=== PATIENT | female | born 1950 | race Caucasian/White ===

== ENCOUNTER 2019-09-10 08:20 | Emergency (ER) | payer MEDICARE, SELFPAY ==
[2019-09-10 08:23] VITALS: BP 136/63; PULSE 96; RESP 18; TEMP 36.2; O2SAT 98
--- NOTE | 2019-09-10 08:41 | ED.WOUNDLAC ---
HPI - Wound/Laceration General Chief Complaint: Wound/Laceration Stated Complaint: fall Time Seen by Provider: 09/10/19 08:25 Source: patient Mode of arrival: ambulatory Limitations: no limitations History of Present Illness HPI narrative: Pt is a 69 y/o female who presents to the ED with c/o a laceration to her chin that happened this morning. Pt states that she has been fighting and URI and this morning she was using the toilet, and stood up, felt lightheaded and hit her ring on her face causing a laceration. Pt denies syncope or loss of consciousness. She states she did not fall. Pt is not on any blood thinners and denies a PMHx. She reports cough, congestion, myalgia, and chills, but denies QUINONES, fever, ABD pain, vomiting, SOB, or visual changes. She notes that she has been eating and drinking normally. Pt states that her tetanus is UTD. Location: face Place: home Patient tetanus UTD: Yes Context: accidental Associated symptoms: other ( cough, congestion, myalgia, and chills) Related Data Allergies Allergy/AdvReac Type Severity Reaction Status Date / Time cefadroxil Allergy Hives Verified 09/10/19 08:58 levofloxacin Allergy Hives Verified 09/10/19 08:28 tetracycline Allergy Hives Verified 09/10/19 08:28 Review of Systems Review of Systems: Narrative: CONSTITUTIONAL: Denies fever or chills. EYES: Denies visual changes. ENT: Reports congestion RESPIRATORY: Reports dry cough. Denies dyspnea. GASTROINTESTINAL: Denies abdominal pain or vomiting SKIN: Reports laceration to chin. MUSCULOSKELETAL: Reports myalgia. NEUROLOGIC: Denies LOC or QUINONES. Denies numbness or weakness. PMFSH Past Medical History Medical History (Updated 09/10/19 @ 09:18 by Sarah Hurtado MD) Anxiety Depression MVP (mitral valve prolapse) Osteoporosis Surgical History Surgical History (Updated 09/10/19 @ 08:55 by Jeny Stoner) H/O dilation and curettage Social History Social History (Updated 09/10/19 @ 08:55 by Jeny Stoner) Smoking status: Never smoker Exam Narrative: Exam Narrative: GENERAL: Well-appearing, well-nourished, and in no acute distress. HEAD: Normocephalic, atraumatic. EYES: PERRLA and EOMI. ENT: Nares clear, no rhinorrhea or epistaxis. Mucous membranes moist. NECK: Supple. CHEST: Clear to auscultation. No respiratory distress. HEART: Regular rate and rhythm. No murmur heard. Normal peripheral pulses. ABDOMEN: Soft, nontender, nondistended, normal active bowel sounds. EXTREMITIES: Normal range of motion. No edema. SKIN: Warm, dry, no rash. 2cm full thickness laceration to lateral aspect of the chin NEURO: No focal deficits. Alert and oriented X3. EOMs intact without nystagmus. No facial droop/asymmetry noted bilaterally. Grimace intact. Intact sensation in face. Hearing intact bilaterally. Shoulder shrug intact. Strength 5/5 bilateral upper extremities. Strength 5/5 bilateral lower extremities. Reflexes 2+ patellar. Ambulatory with a narrow based steady gait. No ataxia. Course Vital Signs Vital signs: Vital Signs Temperature 36.2 C L 09/10/19 08:23 Pulse Rate 96 09/10/19 08:23 Respiratory Rate 18 09/10/19 08:23 Blood Pressure 136/63 09/10/19 08:23 Pulse Oximetry 98 09/10/19 08:23 Temperature 36.2 C L 09/10/19 08:23 Pulse Rate 96 09/10/19 08:23 Respiratory Rate 18 09/10/19 08:23 Blood Pressure 136/63 09/10/19 08:23 Pulse Oximetry 98 09/10/19 08:23 MDM - Wound/Laceration MDM Narrative Medical decision making narrative: The patient presented for evaluation of chin laceration. Patient denies syncope or loss of consciousness. She has a 2 cm full-thickness laceration to her chin. She states that she believes that her ring cut her face. No palpitations, no chest pain, no shortness of breath, no prodromal type symptoms. She denies vision changes, nausea, vomiting, numbness. She is not anticoagulated. She is ambulatory without recurrent symptoms. Neurological exam is nor
[2019-09-10] MEDS: ONDANSETRON HCL ODT 4 MG TABLET PO (10:15)
--- NOTE | 2019-09-10 10:29 | PC.NURSE ---
Pt ambulated per Dr request, no symptoms noted per pt. Normal gait
[2019-09-10 10:41] VITALS: BP 111/64; PULSE 82; RESP 20; TEMP 36.8; O2SAT 97
== END 2019-09-10 10:41 | disposition home or self-care (01) ==
PROVIDERS: Emergency Provider Emergency Medicine
DX: S01.81XA Laceration without foreign body of other part of head, initial encounter (principal); M81.0 Age-related osteoporosis without current pathological fracture; I34.1 Nonrheumatic mitral (valve) prolapse; W26.8XXA Contact with other sharp object(s), not elsewhere classified, initial encounter
CPT/HCPCS: 12011; 99283; A9270

== ENCOUNTER 2020-03-03 09:36 | Outpatient (CLI) | payer MEDICARE, SELFPAY ==
--- NOTE | ~2020-03-03 | US_ITS ---
EXAMINATION: US right upper quadrant EXAM DATE: 03/03/2020 10:35 INDICATION: Liver lesion right liver lobe. TECHNIQUE: Multiple grayscale and Doppler images of the abdomen right upper quadrant were obtained (b y a technologist who performed the scan) and subsequently reviewed. Comparison is made to prior exami nation from 05/24/2019. FINDINGS: The pancreatic head and body are normal in appearance. The pancreatic tail is not visualized. The l iver has normal echogenicity and contour. There are 2 small peripheral right liver lobe slightly hyp erechoic regions identified measuring up to 1.0 cm today. Previously seen region is unchanged. Anothe r region close to it was not specifically identified on prior study, uncertain whether or not it was present and just not visualized. There is no evidence of intrahepatic biliary duct dilation. Portal venous flow was seen in the hepatopedal, normal direction and has normal Doppler waveform. No right- sided hydronephrosis. Common bile duct measures 2 mm, which is normal. The gallbladder wall is normal in thickness, with ex pected amount of distention. No sonographic evidence of pericholecystic fluid. There is no cholelit hiases. Technologist performing exam reports patient did not demonstrate sonographic Degroot's sign. Please note that this sign is less reliable in patients who have received pain medication. IMPRESSION: 2 nonspecific small right liver lobe hyperechoic regions, the one previously identified i s unchanged in size. These are most likely benign but are nonspecific by ultrasound. If patient has k nown primary malignancy, consider MR which could add specificity. If not, optional 6 or 12 month foll ow-up ultrasound. Reviewed, dictated and finalized at location A. IMPRESSION: 2 nonspecific small right liver lobe hyperechoic regions, the one p reviously identified is unchanged in size. These are most likely benign but are nonspecific by ultrasound. If patient has known primary malignancy, consider M R which could add specificity. If not, optional 6 or 12 month follow-up ultraso und.
== END 2020-03-03 09:37 | disposition home or self-care (01) ==
LOC: ANHIMG 09:39
DX: K76.9 Liver disease, unspecified (principal)
CPT/HCPCS: 76705

== ENCOUNTER → 2020-05-04 11:04 | Outpatient (CLI) | payer MEDICARE, SELFPAY ==
--- NOTE | ~2020-05-04 | DEXA_ITS ---
Bone Density Report Name: Rosalind Granados Age: 69 Sex: Female Ethnicity: White Date of : 1950 Indication: postmenopausal; screening for osteoporosis; Referring Provider: PHYSICIAN NOT ON STAFF Study: Bone densitometry was performed. Exam Date: May 04, 2020 Accession number: [id number] Bone Density: Region BMD T-score Z-score Classification AP Spine (L1-L4) 1.131 0.8 2.7 Normal Femoral Neck (Left) 0.501 -3.1 -1.5 Osteoporosis Total Hip (Left) 0.673 -2.2 -0.8 Osteopenia Femoral Neck (Right) 0.513 -3.0 -1.4 Osteoporosis Total Hip (Right) 0.672 -2.2 -0.8 Osteopenia Total Hip Mean 0.673 -2.2 -0.8 Osteopenia World Health Organization criteria for BMD impression classify patients as: Normal (T-score at or above -1.0), Osteopenia (T-score between -1.0 and -2.5), or Osteoporosis (T-score at or below -2.5). 10-year Fracture Risk: FRAX not reported because: Some T-score for Spine Total or Hip Total or Femoral Neck at or below -2.5 Clinical Information Provided by Patient: Has used the following medications: Vitamin D, Calcium Patient maximum height was 63 Menopause Age: 59 Onset of menses at age 18 Number of children 2 Impression: The patient has osteoporosis, based on the Left Femoral Neck T-score. Discussion: INCREASED RISK OF FRACTURE. BONE DENSITY IS UNDESIRABLY LOW AT ONE OR MORE SKELETAL SITES, CONSISTENT WITH POSTMENOPAUSAL OSTEOPOROSIS. This patient's lowest T-score meets the World Health Organization's (WHO) criteria for osteoporosis at one or more sites (T-score -2.5 or below). In untreated patients, the risk of osteoporotic fracture increases approximately two-fold for each 1.0 SD decrease in T-score. Low bone density is not the only risk factor for fracture; also consider factors such as patient's age, frailty or poor health, risk of falling, risk of injury, previous osteoporotic fracture, family history of osteoporosis, cigarette smoking, low body weight, etc. Not everyone with low bone mineral density has osteoporosis; osteomalacia and other metabolic bone disorders should also be considered. Patients who have osteoporosis should be evaluated for specific diseases and conditions (secondary causes) that may cause or contribute to bone loss. The [place] [employer]ocrinologists (AACE) and National Osteoporosis Foundation (NOF) recommend pharmacologic intervention for all postmenopausal women whose T-score is in this range. The patient should follow a healthful lifestyle (good nutrition with adequate calcium and vitamin D, and appropriate weight-bearing exercise). Follow-Up: Consider a repeat BMD and Vertebral Fracture Assessment (VFA) exam in 2 years or sooner if medically necessary, to reassess this patient's status. Reported by: [facility] on 05/04/2020 11:34:00 AM.
== END ==
DX: M81.0 Age-related osteoporosis without current pathological fracture (principal); M85.89 Other specified disorders of bone density and structure, multiple sites
CPT/HCPCS: 77080

== ENCOUNTER → 2020-06-01 18:16 | Outpatient (CLI) | payer MEDICARE, SELFPAY ==
--- NOTE | ~2020-06-01 | MM_ITS ---
EXAMINATION: MM screening sree BI w misty HISTORY: Screening mammogram TECHNIQUE: Craniocaudal and mediolateral oblique 3-D tomosynthesis images were obtained and synthetic 2-D images were generated. CAD analysis was submitted and interpreted. COMPARISON: No prior mammogram is available for comparison at this institution. BREAST PARENCHYMAL COMPOSITION: There are scattered areas of fibroglandular density. FINDINGS: There is no evidence of suspicious mass, calcification, or architectural distortion to sugg est malignancy in either breast. There has been no suspicious interval change. IMPRESSION: 1. No mammographic evidence of malignancy. 2. Recommend routine screening mammography in one year. BI-RADS Category 1: Negative Reviewed, dictated and finalized at location A. TERIA HELPER
== END ==
DX: Z12.31 Encounter for screening mammogram for malignant neoplasm of breast (principal)
CPT/HCPCS: 77063; 77067

== ENCOUNTER 2021-02-08 23:27 | Emergency (ER) | payer MEDICARE, SELFPAY ==
--- NOTE | ~2021-02-08 | XR_ITS ---
EXAMINATION: XR chest 1V portable DATE: 02/09/2021 00:24 INDICATION: Dizziness TECHNIQUE: frontal view of the chest was obtained. COMPARISON: None FINDINGS: Minimal streaky lingular atelectasis at the left costophrenic angle. The lungs are otherwise clear wi th no other airspace opacities, pulmonary edema, pleural effusion or pneumothorax. The cardiomediasti nal silhouette is normal. Visualized bones and soft tissues are unremarkable. IMPRESSION: 1. Minimal lingular atelectasis. Reviewed, dictated and finalized at location A.
--- NOTE | ~2021-02-08 | CT_ITS ---
EXAMINATION: CT brain wo con DATE: 02/09/2021 01:54 INDICATION: Dizziness TECHNIQUE: Computed tomography (CT) of the head was performed without intravenous contrast. The mA wa s adjusted according to patient size. Iterative reconstruction technique was employed. Exam dose: 60 5.33 mGy-cm total exam DLP. COMPARISON: 10/25/2011 CT brain FINDINGS: Bilateral basal ganglia calcifications are noted. No intracranial mass lesion or hemorrhage or cerebrovascular accident is detected. No midline shift o r mass effect. Normal ventricular size. No subdural or epidural hematoma. Included paranasal sinuses and mastoid air cells are unremarkable. No fracture or bone destruction of the cranial vault. IMPRESSION: No acute intracranial abnormality or significant change since 10/25/2011 Reviewed, dictated and finalized at Location A. Reviewed, dictated and finalized at location D. IMPRESSION: No acute intracranial abnormality or significant change since 10/24
[2021-02-08 23:27] VITALS: BP 150/83; RESP 18; TEMP 36.6; O2SAT 100
--- NOTE | 2021-02-09 00:13 | ECG_ITS ---
Measurements Intervals [place] Rate: 76 P: 61 AK: 156 QRS: 44 QRSD: 77 T: 43 QT: 361 QTc: 408 Interpretive Statements SINUS RHYTHM NORMAL ECG Electronically Signed On 02-09-2021 8:55:41 CDT by Dominick Escobar D.O.
[2021-02-09 00:35] LABS: Basophils Absolute Auto 0.1 K/mm3 (0.0-0.1); Basophils Percent Auto 0.7 % (0.2-1.2); Eosinophils Absolute Auto 0.1 K/mm3 (0-0.3); Eosinophils Percent Auto 1.1 % (0-4.4); Hematocrit 44.8 % (37.0-47.0); Hemoglobin 14.6 g/dL (12.0-15.0); Immature Granulocyte Absolute 0.03 K/mm3 (0.00-0.031); Immature Granulocyte Percent A 0.3 % (0-0.5); Lymphocytes Percent Auto 14.2 % (18.3-44.2); Mean Corpuscular HGB Conc 32.6 g/dl (32-36); Mean Corpuscular Hemoglobin 28.7 pg (26-34); Mean Platelet Volume 10.7 fl (7.4-10.4); Monocytes Absolute Auto 0.6 K/mm3 (0.1-0.6); Monocytes Percent Auto 6.1 % (2.6-8.5); Neutrophils Absolute Auto 8.2 K/mm3 (1.3-6.7); Neutrophils Percent Auto 77.6 % (45.5-73.1); Platelet Count Result 247 k/mm3 (150-375); Red Blood Count 5.09 M/mm3 (4.2-5.4); Red Cell Distribution Width 14.2 % (11.5-14.5); White Blood Count 10.6 K/mm3 (4.5-10.0)
[2021-02-09 00:38] VITALS: BP 147/71; BP 151/71; PULSE 88; PULSE 90
[2021-02-09 00:40] VITALS: BP 156/80; PULSE 96
[2021-02-09 00:46] VITALS: BP 140/60; PULSE 81; RESP 12; O2SAT 96
[2021-02-09 00:46] LABS: Alanine Aminotransferase 17 U/L (4-35); Albumin Level 4.2 g/dL (3.5-5.1); Alkaline Phosphatase 91 U/L (38-126); Anion Gap 10 mmol/L (8-16); Aspartate Amino Transferase 24 U/L (14-36); Bilirubin,Total 0.3 mg/dL (0.2-1.3); Blood Urea Nitrogen 11 mg/dL (7-17); Calcium 9.8 mg/dL (8.4-10.2); Carbon Dioxide 21 mmol/L (22-30); Chloride 108 mmol/L (98-107); Estimated CRCL calculation 60 ml/min; Estimated Glomerular Filt Rate > 60; Glucose 118 mg/dL (65-110); Potassium 3.8 mmol/L (3.4-5.0); Sodium 139 mmol/L (137-145)
[2021-02-09 00:58] LABS: Troponin I < 0.012 ng/mL (0.000-0.034)
[2021-02-09] MEDS: SODIUM CHLORIDE 0.9% IV 1,000 ML 999 ML IV CONT (01:38)
[2021-02-09 01:56] VITALS: PULSE 70
--- NOTE | 2021-02-09 02:46 | ED.GENADULT ---
HPI - General Adult General Chief complaint: Weakness Stated complaint: weakness/dizzines Time Seen by Provider: 02/08/21 23:57 History of Present Illness HPI narrative: Patient is 70-year-old female presents the emergency department with chief complaint of dizziness. Patient reports this evening she started noticing that as she turned her head she started to feel as though she was spinning and felt dizzy the patient states she also felt nauseated and lightheaded when this happened. The patient reports that she has had no chest pain no shortness of breath denies focal neurological deficit. Patient reports that it is actually improved upon arrival to the emergency department and is only worsened whenever she turns her head particularly to the left. Related Data Allergies Allergy/AdvReac Type Severity Reaction Status Date / Time cefadroxil Allergy Hives Verified 09/10/19 08:58 levofloxacin Allergy Hives Verified 09/10/19 08:28 tetracycline Allergy Hives Verified 09/10/19 08:28 Review of Systems Review of Systems: A 10 system review of systems was completed on the patient and is negative except for what is stated in the HPI. Nursing and ancillary documentation was reviewed. [facility] Past Medical History Medical History Anxiety Depression MVP (mitral valve prolapse) Osteoporosis Surgical History Surgical History H/O dilation and curettage Social History Social History Smoking status: Never smoker Exam Narrative: GENERAL: Well-appearing, well-nourished, and in no acute distress. HEAD: Normocephalic, atraumatic. EYES: PERRLA and EOMI. ENT: Nares clear, no rhinorrhea or epistaxis. Mucous membranes moist. NECK: Supple. CHEST: Clear to auscultation. No respiratory distress. HEART: Regular rate and rhythm. No murmur heard. Normal peripheral pulses. ABDOMEN: Soft, nontender, nondistended, normal active bowel sounds. EXTREMITIES: Normal range of motion. No edema. SKIN: Warm, dry, no rash. NEURO: No focal deficits. Alert and oriented x3. PSYCH: Normal mood and affect. Course Vital Signs Vital signs: Vital Signs Temperature 36.6 C 02/08/21 23:27 Respiratory Rate 18 02/08/21 23:27 Blood Pressure 150/83 H 02/08/21 23:27 Pulse Oximetry 100 02/08/21 23:27 Temperature 36.6 C 02/08/21 23:27 Pulse Rate 70 02/09/21 01:56 Respiratory Rate 12 02/09/21 00:46 Blood Pressure 140/60 02/09/21 00:46 Pulse Oximetry 96 02/09/21 00:46 Medical Decision Making Vital Signs Vital Signs: Vital Signs Temperature 36.6 C 02/08/21 23:27 Respiratory Rate 18 02/08/21 23:27 Blood Pressure 150/83 H 02/08/21 23:27 Pulse Oximetry 100 02/08/21 23:27 Temperature 36.6 C 02/08/21 23:27 Pulse Rate 70 02/09/21 01:56 Respiratory Rate 12 02/09/21 00:46 Blood Pressure 140/60 02/09/21 00:46 Pulse Oximetry 96 02/09/21 00:46 Lab Data Result diagrams: 02/09/21 00:29 02/09/21 00:29 Labs: Lab Results 02/09/21 02/09/21 Range/Units 00:29 00:29 WBC 10.6 H (4.5-10.0) K/mm3 RBC 5.09 (4.2-5.4) M/mm3 Hgb 14.6 (12.0-15.0) g/dL Hct 44.8 (37.0-47.0) % MCV 88.0 (80-100) fl MCH 28.7 (26-34) pg MCHC 32.6 (32-36) g/dl RDW 14.2 (11.5-14.5) % Plt Count 247 (150-375) k/mm3 MPV 10.7 H (7.4-10.4) fl Immature Gran % (Auto) 0.3 (0-0.5) % Neut % (Auto) 77.6 H (45.5-73.1) % Lymph % (Auto) 14.2 L (18.3-44.2) % [place] % (Auto) 6.1 (2.6-8.5) % Eos % (Auto) 1.1 (0-4.4) % Baso % (Auto) 0.7 (0.2-1.2) % Lymph # (Auto) 1.50 (0.9-3.2) K/mm3 [place] # (Auto) 0.6 (0.1-0.6) K/mm3 Eos # (Auto) 0.1 (0-0.3) K/mm3 Baso # (Auto) 0.1 (0.0-0.1) K/mm3 Abs Immat Gran (auto) 0.03 (0.00-0.031) K/mm3 Absolute Neuts (auto)
== END 2021-02-09 03:35 | disposition home or self-care (01) ==
PROVIDERS: Emergency Provider Emergency Medicine
DX: R42 Dizziness and giddiness (principal); I34.1 Nonrheumatic mitral (valve) prolapse; M81.0 Age-related osteoporosis without current pathological fracture
CPT/HCPCS: 36415; 70450; 71045; 80053; 84484; 85025; 93005; 96360; 99284; J7030

== ENCOUNTER → 2021-06-08 13:28 | Outpatient (CLI) | payer MEDICARE, SELFPAY ==
--- NOTE | ~2021-06-08 | MM_ITS ---
EXAMINATION: MM screening sree BI w misty HISTORY: Screening mammogram TECHNIQUE: Craniocaudal and mediolateral oblique 3-D tomosynthesis images were obtained and synthetic 2-D images were generated. CAD analysis was submitted and interpreted. COMPARISON: 06/01/2020 bilateral screening mammogram BREAST PARENCHYMAL COMPOSITION: There are scattered areas of fibroglandular density. FINDINGS: There is no evidence of suspicious mass, calcification, or architectural distortion to sugg est malignancy in either breast. There has been no suspicious interval change. IMPRESSION: 1. No mammographic evidence of malignancy. 2. Recommend routine screening mammography in one year. BI-RADS Category 1: Negative Reviewed, dictated and finalized at location A. COURIER
== END ==
DX: Z12.31 Encounter for screening mammogram for malignant neoplasm of breast (principal)
CPT/HCPCS: 77063; 77067

== ENCOUNTER → 2022-08-24 13:29 | Outpatient (CLI) | payer MEDICARE, SELFPAY ==
--- NOTE | ~2022-08-24 | MM_ITS ---
EXAMINATION: MM screening sree BI w misty HISTORY: Screening mammogram TECHNIQUE: Craniocaudal and mediolateral oblique 3-D tomosynthesis images were obtained and synthetic 2-D images were generated. CAD analysis was submitted and interpreted. COMPARISON: 06/08/2021, 06/01/2020 bilateral screening mammogram examinations BREAST PARENCHYMAL COMPOSITION: There are scattered areas of fibroglandular density. FINDINGS: There is no evidence of suspicious mass, calcification, or architectural distortion to sugg est malignancy in either breast. There has been no suspicious interval change. IMPRESSION: 1. No mammographic evidence of malignancy. 2. Recommend routine screening mammography in one year. BI-RADS Category 1: Negative Reviewed, dictated and finalized at location A. N RESOURCES BENEFITS SPECIALIST
== END ==
PROVIDERS: PCP Internal Medicine; Visit Provider Internal Medicine
DX: Z12.31 Encounter for screening mammogram for malignant neoplasm of breast (principal)
CPT/HCPCS: 77063; 77067

== ENCOUNTER → 2022-09-23 10:17 | Outpatient (CLI) | payer MEDICARE, SELFPAY ==
--- NOTE | ~2022-09-23 | DEXA_ITS ---
Bone Density Report Name: TERENCE VILLANUEVA Age: 72 Sex: Female Ethnicity: White Date of : 1950 Indication: osteopenia; postmenopausal Referring Provider: ILYA, ODALYS Study: Bone densitometry was performed. Exam Date: September 23, 2022 Accession number: [id number] Bone Density: Region BMD T-score Z-score Classification AP Spine (L1-L4) 1.052 0.0 2.2 Normal Femoral Neck (Left) 0.476 -3.4 -1.6 Osteoporosis Total Hip (Left) 0.654 -2.4 -0.9 Osteopenia Femoral Neck (Right) 0.478 -3.3 -1.5 Osteoporosis Total Hip (Right) 0.655 -2.4 -0.8 Osteopenia Total Hip Mean 0.655 -2.4 -0.9 Osteopenia World Health Organization criteria for BMD impression classify patients as: Normal (T-score at or above -1.0), Osteopenia (T-score between -1.0 and -2.5), or Osteoporosis (T-score at or below -2.5). 10-year Fracture Risk: FRAX not reported because: Some T-score for Spine Total or Hip Total or Femoral Neck at or below -2.5 Previous Exams: Region Exam Age BMD T-score BMD Change BMD Change Date g/cm2 vs Baseline vs Previous AP Spine(L1-L4) 09/23/2022 72 1.052 0.0 -0.080* -0.080* 05/04/2020 69 1.131 0.8 Total Hip(Left) 09/23/2022 72 0.654 -2.4 -0.019 -0.019 05/04/2020 69 0.673 -2.2 Total Hip(Right) 09/23/2022 72 0.655 -2.4 -0.017 -0.017 05/04/2020 69 0.672 -2.2 *Denotes significance at 95% confidence level, LSC for AP Spine = 0.022 g/cm2, LSC for Total Hip = 0.027 g/cm2 Clinical Information Provided by Patient: Has used the following medications: Vitamin D, Calcium Patient maximum height was 63.0 Menopause Age: 59 Onset of menses at age 18 Number of children 2 Impression: The patient has osteoporosis, based on the Left Femoral Neck T-score. The BMD for the AP Spine(L1-L4) decreased, changing by -0.080 since the last DXA exam. Discussion: INCREASED RISK OF FRACTURE. BONE DENSITY IS UNDESIRABLY LOW AT ONE OR MORE SKELETAL SITES, CONSISTENT WITH POSTMENOPAUSAL OSTEOPOROSIS. This patient's lowest T-score meets the World Health Organization's (WHO) criteria for osteoporosis at one or more sites (T-score -2.5 or below). In untreated patients, the risk of osteoporotic fracture increases approximately two-fold for each 1.0 SD decrease in T-score. Low bone density is not the only risk factor for fracture; also consider factors such as patient's age, frailty or poor health, risk of falling, risk of
== END ==
PROVIDERS: PCP Internal Medicine; Visit Provider Internal Medicine
DX: M81.0 Age-related osteoporosis without current pathological fracture (principal); M85.852 Other specified disorders of bone density and structure, left thigh; M85.851 Other specified disorders of bone density and structure, right thigh
CPT/HCPCS: 77080

== ENCOUNTER → 2023-08-29 11:18 | Outpatient (CLI) | payer MEDICARE, SELFPAY ==
--- NOTE | ~2023-08-29 | MM_ITS ---
EXAMINATION: MM screening sree BI w misty HISTORY: Screening TECHNIQUE: Craniocaudal and mediolateral oblique 3-D tomosynthesis images were obtained and synthetic 2-D images were generated. CAD analysis was submitted and interpreted. COMPARISON: Comparison to multiple prior studies sequentially, with oldest reviewed study dated 05/11. BREAST PARENCHYMAL COMPOSITION: Not dense: There are scattered areas of fibroglandular density. FINDINGS: There is no evidence of suspicious mass, calcification, or architectural distortion to sugg est malignancy in either breast. There has been no suspicious interval change. IMPRESSION: 1. No mammographic evidence of malignancy. 2. Recommend routine screening mammography in one year. BI-RADS Category 1: Negative Reviewed, dictated and finalized at location A. METAL MIXER OPERATOR
== END ==
DX: Z12.31 Encounter for screening mammogram for malignant neoplasm of breast (principal)
CPT/HCPCS: 77063; 77067

== ENCOUNTER 2024-09-02 11:20 | Outpatient (CLI) | payer MEDICARE, SELFPAY ==
--- NOTE | ~2024-09-02 | MM_ITS ---
EXAMINATION: MM screening [facility] BI w misty HISTORY: Screening mammogram TECHNIQUE: Craniocaudal and mediolateral oblique 3-D tomosynthesis images were obtained and synthetic 2-D images were generated. CAD analysis was submitted and interpreted. COMPARISON: 08/29/2023, 08/24/2022, 06/08/2021 BREAST PARENCHYMAL COMPOSITION:Not Dense. There are scattered areas of fibroglandular density. FINDINGS: No suspicious mass, calcification, or architectural distortion are identified in either phi ast to suggest malignancy. There has been no suspicious interval change. IMPRESSION: No mammographic evidence of malignancy. Recommend routine screening mammography in one year. BI-RADS Category 1: Negative Reviewed, dictated and finalized at location . MOBILE RENTAL REPRESENTATIVE
== END 2024-09-02 11:21 | disposition home or self-care (01) ==
LOC: MICIMG 11:21
DX: Z12.31 Encounter for screening mammogram for malignant neoplasm of breast (principal)
CPT/HCPCS: 77063; 77067

== ENCOUNTER 2024-11-30 05:52 | Emergency (ER) | payer MEDICARE, SELFPAY ==
[2024-11-30] VITALS (19 sets, daily range): BP systolic 123–157; BP diastolic 55–78; PULSE 72–115; RESP 12–18; TEMP 36.8; O2SAT 97–100
--- NOTE | ~2024-11-30 | XR_ITS ---
EXAMINATION: XR chest 2V DATE: 11/30/2024 06:20 INDICATION: Chest pressure. Possible syncopal episode. TECHNIQUE: PA and lateral views of the chest were obtained. COMPARISON: Chest radiograph dated 02/09/2021 FINDINGS: The lungs remain clear with no focal airspace opacities, pulmonary edema, pleural effusion or pneumot horax. The cardiomediastinal silhouette is normal. Mild thoracolumbar dextrocurvature with severe spo ndylosis. IMPRESSION: 1. No acute cardiopulmonary disease. Reviewed, dictated and finalized at location A.
--- NOTE | ~2024-11-30 | CT_ITS ---
EXAMINATION: CT brain wo con DATE: 11/30/2024 07:46 INDICATION: Trauma with head injury and abrasions under the eye TECHNIQUE: Computed tomography (CT) of the head was performed without intravenous contrast. Sagittal and coronal reconstructions were performed. The mA was adjusted according to patient size. Iterative reconstruction technique was employed. The dose-length product was 529.67 mGy-cm. COMPARISON: head CT dated 02/09/2021 FINDINGS: No fracture. No acute intracranial hemorrhage, acute infarction or abnormal extra axial fluid collect ion. There is mild scattered white matter hypoattenuation consistent with chronic small vessel ischem ic disease. Symmetric dystrophic calcifications at the bilateral basal ganglia. Symmetric prominence of the sulci consistent with mild age-appropriate diffuse cerebral volume loss. Ventricles are rachel l and symmetric. No mass/mass effect. Mild mucosal thickening the ethmoid sinuses. The orbits and mas toid air cells are normal. IMPRESSION: 1. Normal aging brain. No fracture or acute intracranial process. Reviewed, dictated and finalized at location A.
--- NOTE | ~2024-11-30 | CT_ITS ---
EXAMINATION: 1. CT facial & cervical spine wo DATE: 11/30/2024 07:45 INDICATION: Fall with head and facial injury TECHNIQUE: 1. Computed tomography (CT) of the maxillofacial region and of the cervical spine were performed with out intravenous contrast. Sagittal and coronal reconstructions of both regions were obtained. Automat ed exposure control and iterative reconstruction technique were employed. The dose-length product was 201.93 mGy-cm. COMPARISON: None. FINDINGS: Maxillofacial CT: No maxillofacial fractures. Specifically the nasal bones, zygomatic arches, mandible and loza of the orbits and paranasal sinuses are all intact. Orbits are normal. Mild scattered mucosal thickening in the bilateral maxillary and ethmoid sinuses. Mastoid air cells and middle ear cavities are clear. So ft tissues are unremarkable. Cervical spine CT: Mild reversal of the normal cervical lordosis. One-2 mm anterolisthesis C3 on C4. Vertebral body heig hts are normal. No fracture. Small sclerotic likely bone island at the C3 vertebral body. Severe disc height loss with degenerative endplate change and severe bilateral glenohumeral osteoarthritis at C4 -C5, C5-C6 and C6-C7. Posterior endplate osteophytes degenerative mild central canal stenosis at each of these levels. Mild disc height loss at C3-C4 and at a few levels in the visualized upper thoracic spine. Multilevel bilateral moderate to severe cervical facet osteoarthritis with left-sided predomi nance. There is moderate neural foraminal stenosis on the right at C4-C5, on the left at C5-C6 and bi laterally at C6-C7. Mild neural from stenosis at many of the remaining cervical neural foramina. Cerv ical soft tissues are unremarkable. Visualized upper lungs are clear. IMPRESSION: 1. No maxillofacial fractures. 2. Severe cervical spondylosis with no acute osseous abnormality. Reviewed, dictated and finalized at location A.
--- NOTE | 2024-11-30 05:52 | ECG_ITS ---
Test Date: 2024-11-30 05:52:46 Measurements Intervals [place] Rate: 80 P: 57 GA: 172 QRS: 46 QRSD: 78 T: 49 QT: 356 QTc: 412 Interpretive Statements SINUS RHYTHM No previous ECG available for comparison Electronically Signed On 11-30-2024 17:13:13 CDT by Jatinder Green M.D.
[2024-11-30 06:01] LABS: Basophils Absolute Auto 0.1 K/mm3 (0.0-0.1); Basophils Percent Auto 0.3 % (0.2-1.2); Eosinophils Absolute Auto 0.1 K/mm3 (0-0.3); Eosinophils Percent Auto 0.8 % (0-4.4); Hematocrit 48.2 % (37.0-47.0); Hemoglobin 15.6 g/dL (12.0-15.0); Immature Granulocyte Absolute 0.05 K/mm3 (0.00-0.031); Immature Granulocyte Percent A 0.3 % (0-0.5); Lymphocytes Absolute Auto 1.47 K/mm3 (0.9-3.2); Lymphocytes Percent Auto 10.1 % (18.3-44.2); Mean Corpuscular HGB Conc 32.4 g/dl (32-36); Mean Corpuscular Hemoglobin 28.6 pg (26-34); Mean Corpuscular Volume 88.4 fl (80-100); Mean Platelet Volume 11.2 fl (7.4-10.4); Monocytes Absolute Auto 0.7 K/mm3 (0.1-0.6); Neutrophils Absolute Auto 12.2 K/mm3 (1.3-6.7); Neutrophils Percent Auto 83.5 % (45.5-73.1); Platelet Count Result 216 k/mm3 (150-375); Red Blood Count 5.45 M/mm3 (4.2-5.4); Red Cell Distribution Width 14.6 % (11.5-14.5); White Blood Count 14.6 K/mm3 (4.5-10.0)
--- NOTE | 2024-11-30 06:01 | PC.NURSE ---
Per [facility] ERP, hold off on ASA at this time.
[2024-11-30 06:11] LABS: Alanine Aminotransferase 23 U/L (6-35); Albumin Level 4.4 g/dL (3.5-5.1); Alkaline Phosphatase 93 U/L (38-126); Anion Gap 8 mmol/L (4-12); Aspartate Amino Transferase 28 U/L (14-36); Bilirubin,Total 0.6 mg/dL (0.2-1.3); Blood Urea Nitrogen 22 mg/dL (7-17); Calcium 9.2 mg/dL (8.4-10.2); Carbon Dioxide 25 mmol/L (22-30); Chloride 108 mmol/L (98-107); Estimated CRCL calculation 39 ml/min; Estimated Glomerular Filt Rate > 60; Glucose 117 mg/dL (65-110); Lipase 87 U/L (23-300); Sodium 141 mmol/L (137-145)
[2024-11-30 06:23] LABS: Troponin I < 0.012 ng/mL (0.000-0.034)
[2024-11-30 06:40] LABS: INR 0.9; Prothrombin Time 12.9 Seconds (11.1-14.7)
[2024-11-30 06:41] LABS: Partial Thromboplastin Time 31.6 Seconds (22.3-36.8)
[2024-11-30 07:08] LABS: Influenza A QL RT-PCR Negative (Negative); Influenza B QL RT-PCR Negative (Negative); RSV RNA, RT-PCR Negative (Negative); SARS-CoV-2 RNA PCR Negative (Negative)
--- NOTE | 2024-11-30 07:10 | ED.GENADULT ---
HPI - General Adult General Chief complaint: Chest Pain Stated complaint: CP/POSSIBLE SYNCOPE AFTER BM Time Seen by Provider: 11/30/24 06:53 History of Present Illness HPI narrative: 74-year-old female presenting to the emergency department for evaluation after having a suspected syncopal episode. Patient states she woke up during the night and was having some chest pressure. Patient states she went to the bathroom and was sitting on the toilet she felt that she needed to lay down because she but she is going to pass out, patient does not remember falling from the toilet. Patient remembers lying on the bathroom floor and having incontinence to stool. Patient was to able to move and get up and get herself back into bed. Upon arrival emergency department patient denied having any pain but patient does report having some posterior neck tightness and patient does have an abrasion under her right eye. Patient denies any current chest pressure chest pain. Patient denies any prior cardiac history. Report previously having episodes of syncope. Related Data Home Medications ?Medication ?Instructions ?Recorded ?Confirmed ?Last Taken ?Type cholecalciferol (vitamin D3) 25 25 mcg PO DAILY 01/16/23 11/30/24 01/15/23 History mcg (1,000 unit) tablet (Vitamin D3) escitalopram oxalate 5 mg tablet 5 mg PO BID 01/16/23 11/30/24 01/15/23 History vitamin K2 90 mcg capsule 90 mcg PO DAILY 01/16/23 11/30/24 01/15/23 History Allergies Allergy/AdvReac Type Severity Reaction Status Date / Time cefadroxil Allergy Hives Verified 11/30/24 05:54 levofloxacin Allergy Hives Verified 11/30/24 05:54 tetracycline Allergy Hives Verified 11/30/24 05:54 Review of Systems Review of Systems: All systems reviewed & are unremarkable except as noted in HPI and below PMFSH Past Medical History Medical History Anxiety Depression MVP (mitral valve prolapse) Osteoporosis Surgical History Surgical History H/O dilation and curettage Social History Social History Smoking status: Never smoker Substance use: never Substance use type: does not use Living arrangements: with family Spiritual care concerns: No Exam Narrative: APPEARANCE: Well appearing, no pain, no distress, well-nourished. HEAD: normocephalic, abrasion right eye. EYES: PERRLA/EOMI, conjunctivae clear. NOSE: Normal no drainage EARS:TMS clear with good light reflex. THROAT: Pharynx clear, no exudate. NECK: Supple. No adenopathy, no masses. Midline neck tenderness to palpation RESPIRATORY: Airway patent, respirations nonlabored. Clear to auscultation bilaterally, no rales, rhonchi, wheezing. CARDIOVASCULAR: Regular rate and rhythm without murmurs rubs or gallops. ABDOMINAL: Soft, nontender, nondistended, normal bowel sounds MUSCULOSKELETAL: Moves all extremities. Strength/ROM intact, No edema, No calf tenderness. NEURO: Alert. Cranial nerves II through XII intact. Good gait. Good coordination SKIN: Warm, dry. Normal Color Course Vital Signs Vital signs: Vital Signs Temperature 98.3 F 11/30/24 05:47 Pulse Rate 82 11/30/24 05:47 Respiratory Rate 14 11/30/24 05:47 Blood Pressure 133/62 11/30/24 05:47 Pulse Oximetry 100 11/30/24 05:47 Oxygen Delivery Room Air 11/30/24 05:47 Temperature 98.3 F 11/30/24 05:47 Pulse Rate 72 11/30/24 11:50 Respiratory Rate 17 11/30/24 11:50 Blood Pressure 137/60 11/30/24 11:50 Pulse Oximetry 100 11/30/24 11:50 Oxygen Delivery Room Air 11/30/24 05:59 Medical Decision Making [facility] Narrative Medical decision making narrative: 74-year-old female present to the emergency department for evaluation after having a suspected syncopal episode in the bathroom. Patient is unsure if she had a fall but patient does have an abrasion to her right eye lid. No evidence of damage to the orbit itself and patient had negative CT brain, CT cervical spine and CT facial bone. Patient is currently afebrile but does have a minor leukocytosis of 14.6 and hemoglobin of 15.6. Patient's INR 0.9. No acute abnormalities on the patient's CMP patient's AST ALT alk-phos and lipase were negative. Patient had negative serial troponins. Patient's UA was positive for leukocyte esterase and high white blood cells but was negative for bacteria, reflex urine culture was ordered. Patient was negative for influenza RSV and for COVID. Chest x-ray shows no acute cardiopulmonary abnormality. Patient's initial orthostatic vital signs were positive and patient was treated with a L of lactated Ringer's and her vital signs this did improve. Prior to discharge patient did report having a single episode of diarrhea. Patient was advised to follow a clear liquid diet for the next few days. Patient does prefer to be discharged home. Low concern for cardiac arrhythmia as the underlying etiology of her near syncopal episode. No evidence of trauma. Patient was updated results of her workup and patient and family are comfortable with plan for discharge. Differential Diagnosis Differential Diagnosis: Cardiac arrhythmia, syncope, near syncope, diarrhea, dehydration, orthostatic hypotension, CVA, TIA Vital Signs Vital Signs: Vital Signs Temperature 98.3 F 11/30/24 05:47 Pulse Rate 82 11/30/24 05:47 Respiratory Rate 14 11/30/24 05:47 Blood Pressure 133/62 11/30/24 05:47 Pulse Oximetry 100 11/30/24 05:47 Oxygen Delivery Room Air 11/30/24 05:47 Temperature 98.3 F 11/30/24 05:47 Pulse Rate 72 11/30/24 11:50 Respiratory Rate 17 11/30/24 11:50 Blood Pressure 137/60 11/30/24 11:50 Pulse Oximetry 100 11/30/24 11:50 Oxygen Delivery Room Air 11/30/24 05:59 Lab Data Lab results reviewed: Yes I reviewed the patient's lab results. 11/30/24 05:57 11/30/24 05:57 Labs: Lab Results 11/30/24 11/30/24 11/30/24 Range/Units 05:57 06:08 09:00 WBC 14.6 H (4.5-10.0) K/mm3 RBC 5.45 H (4.2-5.4) M/mm3 Hgb 15.6 H (12.0-15.0) g/dL Hct 48.2 H (37.0-47.0) % MCV 88.4 (80-100) fl MCH 28.6 (26-34) pg MCHC 32.4 (32-36) g/dl RDW 14.6 H (11.5-14.5) % Plt Count 216 (150-375) k/mm3 MPV 11.2 H (7.4-10.4) fl Immature Gran % (Auto) 0.3 (0-0.5) % Neut % (Auto) 83.5 H (45.5-73.1) % Lymph % (Auto) 10.1 L (18.3-44.2) % [place] % (Auto) 5.0 (2.6-8.5) % Eos % (Auto) 0.8 (0-4.4) % Baso % (Auto) 0.3 (0.2-1.2) % Lymph # (Auto) 1.47 (0.9-3.2) K/mm3 [place] # (Auto) 0.7 H (0.1-0.6) K/mm3 Eos # (Auto) 0.1 (0-0.3) K/mm3 Baso # (Auto) 0.1 (0.0-0.1) K/mm3 Abs Immat Gran (auto) 0.05 H (0.00-0.031) K/mm3 Absolute Neuts (auto) 12.2 H (1.3-6.7) K/mm3 Absolute Nucleated RBC 0.000 (0.0-0.012) K/mm3 Nucleated RBC % 0.0 (0.0-0.2) % PT 12.9 (11.1-14.7) Seconds INR 0.9 APTT 31.6 (22.3-36.8) Seconds Sodium 141 (137-145) mmol/L Potassium 4.0 (3.4-5.0) mmol/L Chloride 108 H (98-107) mmol/L Carbon Dioxide 25 (22-30) mmol/L Anion Gap 8 (4-12) mmol/L BUN 22 H D (7-17) mg/dL Creatinine 0.91 (0.7-1.0) mg/dL Estim Creat Clear Calc 39 ml/min Estimated GFR > 60 (59 - ) Glucose 117 H (65-110) mg/dL Calcium 9.2 (8.4-10.2) mg/dL Total Bilirubin 0.6 (0.2-1.3) mg/dL AST 28 (14-36) U/L ALT 23 (6-35) U/L Alkaline Phosphatase 93 (38-126) U/L Troponin I < 0.012 < 0.012 (0.000-0.034) ng/mL Total Protein 7.0 (6.3-8.2) g/dL Albumin 4.4 (3.5-5.1) g/dL Lipase 87 (23-300) U/L Urine Color Yellow (Yellow) Urine Appearance Clear (Clear) Urine pH 5.0 (5.0-9.0) Ur Specific [place] 1.023 (1.001-1.035) Urine Protein Negative (Negative) mg/dL Urine Glucose (UA) Negative (Negative) mg/dL Urine Ketones 1+ H (Negative) mg/dL Ur Blood (Man) Negative (Negative) Urine Nitrate Negative (Negative) Urine Bilirubin Negative (Negative) Urine Urobilinogen 0.2 (<2.0) mg/dL Leukocyte Esterase Rfl 2+ H (Negative) STIVEN/UL Urine RBC 0-2 (0-2) /hpf Urine WBC 11-20 H (0-3) /hpf Ur Squamous Epith Cells None seen (Few) /hpf Urine Bacteria None seen /hpf Urine Casts 3-5 Influenza A (RT-PCR) Negative (Negative) Influenza B (RT-PCR) Negative (Negative) RSV (RT-PCR) Negative (Negative) SARS-CoV-2 RNA (RT-PCR) Negative (Negative) Imaging Data Radiologist's impression: Impressions Head CT 11/30/24 07:50 IMPRESSION: 1. Normal aging brain. No fracture or acute intracranial process. Head/Cervical Spine/Facial Bones CT 11/30/24 07:53 IMPRESSION: 1. No maxillofacial fractures. 2. Severe cervical spondylosis with no acute osseous abnormality. Chest X-Ray 11/30/24 08:01 IMPRESSION: 1. No acute cardiopulmonary disease. ECG Data EKG #1: EKG Interpretation: normal rate, sinus rhythm, no ectopy, no ST changes, normal QRS, normal QT and NL axis Discharge Plan Discharge Clinical Impression: Orthostatic hypotension, Facial injury, Diarrhea Patient Disposition: Home Condition: Stable Instructions: Antibiotic Form, Clear Liquid Diet (ED), Acute Diarrhea (ED), Near Syncope (ED) Additional Instructions: Clear liquid diet for the next 1-3 days. Drink plenty of fluids. Have close follow-up with your primary care physician. If you have any worsening symptoms then please call or return to the emergency department. Patient Language: Beninese Prescriptions: No Action escitalopram oxalate 5 mg tablet 5 mg PO BID cholecalciferol (vitamin D3) [Vitamin D3] 25 mcg (1,000 unit) Tablet 25 mcg PO DAILY vitamin K2 90 mcg Capsule 90 mcg PO DAILY Follow-up/Referrals: Tony,Aneta [Other]
--- OUTSIDE RECORDS SUMMARY | 2024-11-30 07:45 | XMS_ITS | Clinical Summary ---
Author Organization [facility] Address [address] [place] [address] Care Team Providers Care Baby Registry Sales Consultant Name Role Phone Aneta Jansen DO Unavailable [phone] Aneta Jansen DO Primary Care Provider [phone] Source Comments [facility],non-owned Affiliates and Associated Physician Practices is amultiple site organization consisting of ambulatory clinics and hospital sitesin [place], [place], [place] and [place]. This disclosure is being madepursuant to the Care Everywhere program and may not contain all information available regarding this patient. Last updated 18.[facility] Allergies Active Allergy Reactions Criticality Noted Date Comments Azithromycin Diarrhea 10/15/2012 Doxycycline Rash Low 05/26/2008 hives Cefadroxil Monohydrate Rash Low 08/03/2009 Hives Levaquin 05/26/2008 Zoledronic Acid 10/15/2012 Muscle weakness, and arthralgias Teriparatide 10/15/2012 [place] ill, flu like symptoms while on it. Couph, rhinitis, fatigue on Rx. Naproxen-Esomeprazole Other 05/21/2018 Insomnia, and wired Medications * Be aware that medications may not be up to date on this document. Alwaysverify current medications with the patient. vitamin D3 (Cholecalcifero l) 25 MCG (1000 UNITS) tablet Take 1 (one) tablet by mouth once daily Active escitalopram (Lexapro) 5 MG tabletIndicatio ns:Generalized Anxiety Disorder Take 1 (one) tablet by mouth once daily Reasons: Generalized Anxiety Disorder 90 tablet 3 4 Active clobetasol (Temovate) 0.05 % ointment Apply to affected area every Monday, Monday & Monday 60 g 2 4 Active propranolol (Inderal) 10 MG tablet Take 1 (one) tablet by mouth 3 times daily as needed for Hypertension (BP >140/90) 30 tablet 1 4 Active Active Problems Problem Noted Date Diagnosed Date Elevated LDL cholesterol level 12/26/2022 White coat syndrome with hypertension 12/08/2022 Difficulty swallowing pills 11/25/2021 Overview (11/25/2021): Anxiety with it. No trouble swallowing food or liquids. 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 Repeat 10 years. -can schedule WWE in 1 year Anxiety 11/25/2021 03/12/2024 Lichen sclerosus et atrophicus of the vulva 06/11/2012 03/12/2024 MVP (mitral valve prolapse) 05/26/2008 03/12/2024 Osteoporosis 05/26/2008 11/25/2021 Encounters Date Type Department Care Team Description 09/02/2024 Patient Outreach [facility] - Care Coordination [address] [phone] Sophia Rosales Outreach Preventive Care from Last 3 Months Immunizations Immunization Administration Dates Next Due INFLUENZA VACCINE, TRIV. (AF LURIA, FLUZONE TRIVALENT; 6MO+) (IIV3) 06/10/2009 FLU VACCINE TRI IIV3 SPLIT PF IM (FLUVIRIN) 06/09,06/11/2012 INFLUENZA VACCINE 07/10/1996 INFLUENZA VACCINE, ADJUVANTE D, QUADR. (FLUAD QUADRIVALENT; 65Y+) (AIIV4) 04/27/2022,04/09/2021 INFLUENZA VACCINE, QUADR. (A FLURIA, FLUZONE QUADRIVALENT; 6MO+) (IIV4) 05/20/2014 INFLUENZA VACCINE, QUADR. (F LUZONE; FLULAVAL; FLUARIX; AFLURIA QUADRIVALENT; 6MO+), 0.5 ML (IIV4) 05/23/2017,06/07/2016,05/18/2015 PNEUMOCOCCAL PPSV23 11/26/2018 Pneumococcal Pcv13 Conj 11/13/2017 TD VACCINE 07/10/1998 TDAP (7yrs+) 02/20/2012 TDAP, HISTORIC VACCINE 12/02/2022 ZOSTER VACCINE, LIVE 08/21/2013 Zoster Hzv Vacc Recombinant Inj Im 02/04/2022, iNFLUENZA VACCINE, RECOM-QUINONES, QUADR. (FLUBLOCK QUADRIVALENT; 18Y+) (RIV4) 05/17/2019,05/21/2018 Family History Medical History Relation Name Comments None Known Brother Alzheimer's Disease Father CVA Maternal Grandfather Cancer Maternal Grandmother maybe b lood cancer Dementia Mother Lung Disease Paternal Grandfather coal mi ner's lung Hypertension Paternal Grandmother None Known Sister Cancer - Breast Neg Hx Cancer - Ovarian Neg Hx Relation Name Status Comments Brother Alive Father (Age 83) alzheimers Maternal Grandfather Maternal Grandmother (Age 89) Mother Alive Paternal Grandfather Paternal Grandmother Sister Alive Social History Tobacco Use Types Packs/Day Years Used Date Smoking Tobacco: Never Passive Smoke Exposure: Past Smokeless Tobacco: Never Tobacco Cessation:Counseling Given: Not Answered Passive Exposure Comments:childhood Alcohol Use Standard Drinks/Week Comments No 0 (1 standard drink = 0.6 oz pur e alcohol) PHQ-2 Answer Date Recorded Patient Health Questionnaire-2 Score 0 05/08/2024 Education Answer Date Recorded What is the highest level of school you have completed or the highest degree you have received? Some college, no degree 05/15/2024 Comments No Sex and Gender Information Value Date Recorded Sex Assigned at Female 08/23/2020 2:41 PM [employer] Legal Sex Female 6:48 AM [employer] Gender Identity Female 08/23/2020 2:41 PM [employer] Sexual Orientation Not on file Last Filed Vital Signs Vital Sign Reading Time Taken Comments Blood Pressure 170/84 05/15/2024 2:34 PM [employer] Pulse 108 05/15/2024 2:34 PM [employer] Temperature 36.9 C (98.4 F) 05/15/2024 2:34 PM [employer] Respiratory Rate 18 06/22/2020 8:41 AM [employer] Oxygen Saturation 97% 05/15/2024 2:34 PM [employer] Inhaled Oxygen Concentration - - Weight 57.6 kg (127 lb) 05/15/2024 2:34 PM [employer] Height 158.8 cm (5' 2.5 ) 05/15/2024 2:34 PM [employer] Body Mass Index 22.86 05/15/2024 2:34 PM [employer] Plan of Treatment Upcoming Encounters Date Type Department Care Team (Late st Contact Info) Description 03/13/2025 10:20 AM CDT Office Visit [facility] - Internal Medicine [address] [place] [address] Aneta Jansen DO [address] [place] [address] Health Maintenance Due Date Last Done Comments CT COLONOGRAPHY - COLON CA SCREENING 1952 FIT - COLON CA SCREENING 1950 FLEX SIG - COLON CA SCREENING 1950 COLON MONITORING 11/05/2022 11/05/2012 COLONOSCOPY - COLON CA SCREENING 11/05/2022 11/05/2012, 12/21/2001 COVID-19 VACCINE ( season) 2024 DEPRESSION SCREENING 07/10/2024 03/01/2024, 11/30/2022, 11/15/2021 MEDICARE AWV CALENDAR YEAR 2024 03/01/2024, 11/30/2022, 11/18/2021, Additional history exists BONE DENSITY TESTING 09/23/2024 09/23/2022, 05/04/2020, 01/24/2018, Additional history exists INFLUENZA VACCINE (Season Ended) 2025 04/27/2022, 04/09/2021, 05/17/2019, Additional history exists MAMMOGRAM 09/02/2025 09/02/2024, 08/11, 08/24/2022, Additional history exists COLOGUARD (AGES 45-75) - COLON CA SCREENING 03/27/2026 03/27/2023, 03/27/2023 Colorectal Cancer Screening 03/27/2026 Respiratory Syncytial Virus (RSV) Vaccine Pt: or over 60 yrs (1 - 1-dose 75+ series) 2027 LIPID TESTING 04/02/2029 04/02/2024, 08/2022, 04/07/2021, Additional history exists DTAP/TDAP/TD VACCINES (4 - Td or Tdap) 12/02/2032 12/02/2022, 02/20/2012, 07/10/1998 PNEUMOCOCCAL VACCINE 50+ Completed 11/26/2018, 01/2018 HEPATITIS C SCREENING Completed 04/07/2021 ZOSTER VACCINE Completed 02/04/2022, 08/2021, 08/21/2013 HEPATITIS B VACCINE Aged Out No longe r eligible based on patient's age to complete this topic HIB VACCINE Aged Out No longer eligi ble based on patient's age to complete this topic HPV VACCINE Aged Out No longer eligi ble based on patient's age to complete this topic MENINGOCOCCAL (Group B) VACCINE SHARED DECISION-MAKING Aged Out No longer eligible based on patient's age to complete this topic MENINGOCOCCAL GROUPS A/C/Y/W VACCINE Aged Out No longer eligible based on patient's age to complete this topic Procedures Procedure Name Priority Date/Time Associated Diagnosis Comments MAMMOGRAM 09/02/2024 LIPID PROFILE Routine 04/02/2024 8:04 AM CDT Elevated LDL cholesterol level Screening, ischemic heart disease COLOGUARD TEST Routine 03/27/2023 7:00 AM CDT Colon cancer screening DEXA BONE DENSITY AXIAL SKELETON Routine 09/23/2022 Osteoporosis, unspecified osteoporosis type, unspecified pathological fracture presence HEPATITIS C ANTIBODY RFLX COCO Routine 04/07/2021 11:17 AM CDT Encounter for hepatitis C screening test for low risk patient ENDOSCOPY, COLON, SCREENING Routine 11/05/2012 from Last 3 Months or Most Recently Relevant to Health Maintenance Results * MAMMOGRAM (09/02/2024) Anatomical Region Laterality Modality Other 09/02/2024 Narrative 09/02/2024 Ordered by an unspecified provider. us Scanned Document SCANNING ONLY Final Result * (ABNORMAL) LIPID PROFILE (LIPID PANEL) (04/02/2024 8:04 AM CDT) Cholesterol 188 100 - 199 mg/dL [facility] INSURANCE BILL Triglycerides 70 0 - 149 mg/dL [facility] INSURANCE BILL HDL Cholesterol 61 >39 mg/dL [facility] INSURANCE BILL VLDL Calculated 13 5 - 40 mg/dL [facility] INSURANCE BILL LDL Calculated 114(H) 0 - 99 mg/dL [facility] INSURANCE BILL Blood BLOOD SPECIMEN / Unknown 04/02/2024 8:04 AM CDT 04/02/2024 Narrative [facility] INSURANCE BILL - 04/03/2024 7:12 AM CDT Performed at: 01 - [facility] [address] [place], [place] [id number] Progress Man: Raffaele Rivas PhD, Phone: [phone] us Aneta Jansen DO LAB - CHEMISTRY ORDERABLES Final Result [facility] INSURANCE BILL [address] [place] [address] * [id number] COLOGUARD TEST *Associate with Z12.11 OR Z12.12 Dx Codes* (03/27/2023 7:00 AM CDT) Cologuard Negative Negative [facility] Comment: NEGATIVE TEST RESULT. A negative Cologuard result indicates a low likelihood that a colorectal cancer (CRC) or advanced adenoma (adenomatous polyps with more advanced pre-malignant features) is present. The chance that a person with a negative Cologuard test has a colorectal cancer is less than 1 in 1500 (negative predictive value >99.9%) or has an advanced adenoma is less than 5.3% (negative predictive value 94.7%). These data are based on a prospective cross-sectional study of 10,000 individuals at average risk for colorectal cancer who were screened with both Cologuard and colonoscopy. (Norbert Levin al, N Engl J Med 2014;370(14):5696-3635) The normal value (reference range) for this assay is negative. COLOGUARD RE-SCREENING RECOMMENDATION: Periodic colorectal cancer screening is an important part of preventive healthcare for asymptomatic individuals at average risk for colorectal cancer. Following a negative Cologuard result, the [place] [employer] and U.S. Multi-Society Task Force screening guidelines recommend a Cologuard re-screening interval of 3 years. References: [place] [employer] Guideline for Colorectal Cancer Screening: https://www.cancer.org/cancer/ebdpm-nijlea-pdyrjx/eqxvotgmn-wvptoyxlt-pjxbhuh/ acs-recommendations.html.; Stoney DK, Ena CR, Cecil ParisK, Colorectal Cancer Screening: Recommendations for Physicians and Patients from the U.S. Multi-Society Task Force on Colorectal Cancer Screening , Am J Gastroenterology 2017; 112:2115-2837. TEST DESCRIPTION: Composite algorithmic analysis of stool DNA-biomarkers with hemoglobin immunoassay. Quantitative values of individual biomarkers are not reportable and are not associated with individual biomarker result reference ranges. Cologuard is intended for colorectal cancer screening of adults of either sex, 45 years or older, who are at average-risk for colorectal cancer (CRC). Cologuard has been approved for use by the U.S. FDA. The performance of Cologuard was established in a cross sectional study of average-risk adults aged 50-84. Cologuard performance in patients ages 45 to 49 years was estimated by sub-group analysis of near-age groups. Colonoscopies performed for a positive result may find as the most clinically significant lesion: colorectal cancer [4.0%], advanced adenoma (including sessile serrated polyps greater than or equal to 1cm diameter) [20%] or non- advanced adenoma [31%]; or no colorectal neoplasia [45%]. These estimates are derived from a prospective cross-sectional screening study of 10,000 individuals at average risk for colorectal cancer who were screened with both Cologuard and colonoscopy. (Norbert Levin al, N Engl J Med 2014;370(14):9008-4897.) Cologuard may produce a false negative or false positive result (no colorectal cancer or precancerous polyp present at colonoscopy follow up). A negative Cologuard test result does not guarantee the absence of CRC or advanced adenoma (pre-cancer). The current Cologuard screening interval is every 3 years. ([employer] [employer] and U.S. Multi-Society Task Force). Cologuard performance data in a 10,000 patient pivotal study using colonoscopy as the reference method can be accessed at the following location: www.[employer]/results. Additional description of the Cologuard test process, warnings and precautions can be found at www.cologuard.[employer]. Stool STOOL SPECIMEN / Unknown 03/27/2023 7:00 AM CDT 03/28/2023 3:24 PM CDT Aneta Jansen DO LAB - CHEMISTRY ORDERABLES Final Result [facility] [address] [place] [address] [facility] [address] [address] * DEXA BONE DENSITY AXIAL SKELETON (09/23/2022) Anatomical Region Laterality Modality Other 09/23/2022 Aneta Jansen DO DEXA ORDERABLES Final Resu lt * HEPATITIS C ANTIBODY RFLX COCO (04/07/2021 11:17 AM CDT) Hepatitis C Antibody 0.1 0.0 - 0.9 s/co ratio [facility] ACCOUNT BILL Blood BLOOD SPECIMEN / Unknown 04/07/2021 11:17 AM CDT 04/07/2021 Narrative Resulting Agency Comment Lab Testing performed at: [facility] [place] [address] [id number] us Osvaldo Tay MD LAB - SEROLOGY ORDERABLES Karuna l Result [facility] ACCOUNT BILL [address] [place] [address] * ENDOSCOPY, COLON, SCREENING (11/05/2012) us Joseph Pina MD GI PROCEDURE ORDERABLES Karuna l Result from Last 3 Months or Most Recently Relevant to Health Maintenance Insurance [facility] [place] [address] [facility] [place] [address] Advance Directives * Full Code (Latest Code Status on File) Date Activated Date Inactivated Comments 11/18/2021 2:18 PM Care Teams Baby Registry Sales Consultant Relationship Specialty Start Date End Date Aneta Jansen DO [address] [place] [address] PCP - Attributed-[facility] 08/10/21 Aneta Jansen DO [address] [place] [address] PCP - General Internal Medicine 11/18/21
--- OUTSIDE RECORDS SUMMARY | 2024-11-30 07:45 | XMS_ITS | Referral Summary ---
Author Organization [facility] Address [address] [place] [phone] Care Team Providers Care Flag Car Driver Name Role Phone No, Physician Primary Care Provider [phone] Joseph Pina MD Unavailable [phone] Encounters Date Type Department Care Team Description 10/18/2024 1:30 PM CDT Office Visit [facility] Obstetrical Gynecology [address] [place] [address] [place] [phone] Kathryn Colvin MD Lichen sclerosus (Primary Dx) from Last 3 Months Allergies Active Allergy Reactions Criticality Noted Date Comments Azithromycin Diarrhea Low 10/15/2012 Doxycycline Rash Medium 05/26/2008 hives Levofloxacin Unknown 05/26/2008 Naproxen-Esomeprazole Other (See comments) 05/21/2018 Insomnia, and wired Penicillins Hives Medium 11/03/2017 Shellfish Rash Medium 08/03/2009 Hives Teriparatide Unknown 10/15/2012 [place] ill, flu like symptoms while on it. Couph, rhinitis, fatigue on Rx. Zoledronic Acid Unknown 10/15/2012 Muscle weakness, and arthralgias Medications escitalopram (LEXAPRO) 5 mg tablet 8 Active calcium-vitamin D3-vitamin K (VIACTIV) 500-500-40 mg-unit-mcg tablet,chewable Take 1 each by mouth. Active clobetasol (TEMOVATE) 0.05 % ointment Apply topically. 6 Active fish,flaxseed oil-e.prim-bcur r 400-400-200 mg capsule Take 1,600 mg by mouth. 5 Active cholecalciferol (VITAMIN D-3) 1,000 unit Take 1 tablet/capsule (1,000 Units total) by mouth daily Active ketoconazole (NIZORAL) 2 % cream APPLY SMALL AMOUNT TOPICALLY TO FEET AND TOENAILS EVERY NIGHT AT BEDTIME 5 Active Klayesta powder APPLY A SMALL AMOUNT TO FOLDS THREE TIMES DAILY 5 Active propranoloL (INDERAL) 10 mg tablet Take 1 tablet (10 mg total) by mouth 3 (three) times a day as needed 4 Active vitamin K2 40 mcg tablet Take by mouth Activ e Active Problems Problem Noted Date Diagnosed Date Age-related osteoporosis wit hout current pathological fracture 01/25/2018 Social History Tobacco Use Types Packs/Day Years Used Date Smoking Tobacco: Never Smokeless Tobacco: Never Comments No Sex and Gender Information Value Date Recorded Sex Assigned at Not on file Legal Sex Female 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 Gender Identity Not on file Sexual Orientation Not on file Last Filed Vital Signs Vital Sign Reading Time Taken Comments Blood Pressure 142/70 10/18/2024 1:21 PM CDT Pulse - - Temperature - - Respiratory Rate - - Oxygen Saturation - - Inhaled Oxygen Concentration - - Weight 58.5 kg (129 lb) 10/18/2024 1:21 PM CDT Height 158.8 cm (5' 2.5 ) 10/18/2024 1:21 PM CDT Body Mass Index 23.22 10/18/2024 1:21 PM CDT Plan of Treatment Not on file Procedures Procedure Name Priority Date/Time Associated Diagnosis Comments DEXA AXIAL SKELETON BONE DENSITY 1 OR MORE SITES Schedule Routine, Read Routine (OP Routine) 01/24/2018 8:15 AM CDT Osteoporosis, unspecified osteoporosis type, unspecified pathological fracture presence from Last 3 Months or Most Recently Relevant to Health Maintenance Results * Dexa Axial Skeleton Bone Density 1 or 2 Site (01/24/2018 8:15 AM CDT) Anatomical Region Laterality Modality Body N/A Radiographic Nicci ging Narrative 01/24/2018 8:27 AM CDT Patient Name: Rosalind Granados Date of : 1950 Date of scan: 01/24/2018 Bone mineral density was performed on a Hologic Discovery Densitometer. Machine Cross-calibration and Precision studies have been performed with a least significant change of 0.024 g/cm at the spine, 0.020 g/cm at the total proximal femur, and 0.014g/cm at the forearm. HISTORY: This is a 67 y.o. postmenopausal female with a history of osteoporosis. Currently on treatment with calcium, Reclast and Forteo. Previously treated with Reclast and Forteo. With a current complaint of back pain. History of tobacco use: History Smoking Status Never Smoker INDICATIONS: Menopause status and history of osteoporosis. FINDINGS: BONE MINERAL DENSITY OF THE LUMBAR SPINE Bone Mineral Density (BMD) of the lumbar spine was measured from L1-L4 and the average density was calculated to be 1.134 gm/cm. This corresponds to a T-score standard deviations from the mean of young adults of 0.8. There is no previous study available for comparison. BONE MINERAL DENSITY OF THE PROXIMAL FEMUR Bone Mineral Density (BMD) of the left hip total was found to be 0.675 gm/cm2. This corresponds to a T-score standard deviations from the mean of young adults of -2.2. Femoral neck is 0.493 gm/cm2 with a T-score of -3.2. There is no previous study available for comparison. SUMMARY: Bone mineral density shows evidence of osteoporosis and marked increase risk of fracture. ADDITIONAL COMMENTS: If the patient has a history of a fragility fracture, a fracture that occurred with trauma equivalent to a fall from a standing position or less, then the diagnosis is osteoporosis. The risk of osteoporotic fracture increases approximately 2-fold for each 1.0 SD decrease in T-score. However, low bone density is not the only risk factor for fracture. Other factors include patient s age, previous osteoporotic fracture or prior fracture as an adult, loss of height of greater than 2 inches, corticosteroid use, risk of falling, risk of injury, and family history of osteoporosis. Not everyone with low bone mineral density has osteoporosis. Osteomalacia and other metabolic bone disorders should also be considered where indicated. Patients who have osteoporosis should be evaluated for specific diseases and conditions (secondary causes) that may cause or contribute to bone loss. Consider repeating this study in 1-2 years to assess the patient s response to treatment, if applicable. It is recommended that any follow up exam be performed on the same machine if possible for better accuracy. DEFINITIONS: Osteoporosis: BMD at or below -2.5 T-score Osteopenia (low bone mass): BMD between -1.0 and-2.5 T-score. The Bone Health Program adopts the following WHO definitions: Osteoporosis: BMD below -2.5 S.D. as compared to the BMD of young normal adults. Osteopenia or Low Bone Mass: BMD between -1.0 and -2.5 S.D. below the BMD of young normal adults. Normal Bone Density: BMD equal to or greater than -1.0 S.D. as compared to the BMD of young normal adults. References: 1) Jose, Annals of Internal Medicine 114(11): 919-923 (1990) 2) Sridevi, Lancet 341 : 72-75 (1992) 3) Armani, Journal Bone and Mineral Research 7(6): 633-8 (1991) 4) Husam, Journal Bone and Mineral Research 8(10):1227-33 (1992) The history and data sections of the bone mineral density scan were prepared by RT Becky who is accredited by the International Society of Clinical Densitometry. The overall patient assessment and scan interpretation were performed by Veronique Birmingham M.D. Rosalind Pina STAMPS OR COINS SALESPERSON IMG DXA PROCEDURES Karuna l Result from Last 3 Months or Most Recently Relevant to Health Maintenance Insurance [employer] ACCESS CHOICE [address] [id number] [facility] MEDICARE ADVANTAGE [address] [id number] [facility] MEDICARE ADVANTAGE [address] [id number] Care Teams Flag Car Driver Relationship Specialty Start Date End Date No, Physician PCP - General 10/18/22 Joseph Pian MD [address] [place] [address] 10/18/22
--- OUTSIDE RECORDS SUMMARY | 2024-11-30 07:45 | XMS_ITS | Clinical Summary ---
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 Gender Identity Not on file Sexual Orientation Not on file Plan of Treatment Health Maintenance Due Date Last Done Comments DTAP/TDAP/TD VACCINES (1 - Tdap) 1971 COLORECTAL SCREENING 1997 Colorectal Cancer Screening 1997 FIT-DNA Q 3 years 1997 FIT/FOBT Q 1 year 1997 Flex Sig/CT Colonography Q 5 years 1997 PNEUMOCOCCAL VACCINE 50+ YEARS (1 of 1 - PCV) 07/16/19 03 ZOSTER VACCINE (1 of 2) 2002 OSTEOPOROSIS SCREENING 2017 BREAST CANCER SCREENING 05/17/2020 05/17/2019 INFLUENZA VACCINE (#1) 2024 RSV VACCINE (60+ or ) (1 - 1-dose 75+ series) 2027 Procedures Procedure Name Priority Date/Time Associated Diagnosis Comments MAMMO SCREEN BILAT W OR WO CAD Routine 05/17/2019 from Last 3 Months or Most Recently Relevant to Health Maintenance Results * MAMMO SCREEN BILAT W OR WO CAD (05/17/2019) Anatomical Region Laterality Modality Breast Bilateral Mammography Rocky Perkins MD MAMMO ORDERABLES Edite d Result - Final from Last 3 Months or Most Recently Relevant to Health Maintenance Insurance [facility] [id number] [address] [id number]
--- OUTSIDE RECORDS SUMMARY | 2024-11-30 07:45 | XMS_ITS | Clinical Summary ---
Author Organization [facility] Address [address] [place] [phone] Care Team Providers Care Mix Mill Tender Name Role Phone No, Physician Primary Care Provider [phone] Joseph Pina MD Unavailable [phone] Allergies Active Allergy Reactions Criticality Noted Date Comments Azithromycin Diarrhea Low 10/15/2012 Doxycycline Rash Medium 05/26/2008 hives Levofloxacin Unknown 05/26/2008 Naproxen-Esomeprazole Other (See comments) 05/21/2018 Insomnia, and wired Penicillins Hives Medium 11/03/2017 Shellfish Rash Medium 08/03/2009 Hives Teriparatide Unknown 10/15/2012 [place] ill, flu like symptoms while on it. [...] osteoporosis wit hout current pathological fracture 01/25/2018 Encounters Date Type Department Care Team Description 10/18/2024 1:30 PM CDT Office Visit [facility] Medical Group Obstetrical Gynecology [facility] [phone] Ktahryn Colvin MD Lichen sclerosus (Primary Dx) from Last 3 Months Medical History Medical History Date Comments Low vitamin D level 11/13/2017 Family History Medical History Relation Name Comments Osteoporosis Mother lost height Mother Breast cancer Neg Hx Ovarian cancer Neg Hx Uterine cancer Neg Hx Relation Name Status Comments Mother Social History Tobacco Use Types Packs/Day Years Used Date Smoking Tobacco: Never Smokeless Tobacco: Never Comments No Sex and Gender Information Value Date Recorded Sex Assigned at Not on file Legal 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 Gender Identity Not on file Sexual Orientation Not on file Obstetrics History Para Term AB IAB SAB Ectopic Multiple Livin g Live Births 2 2 2 2 2 Date Outcome GA Total Labor Labor/2nd/3rd Weight Sex Type Anes PTL Lila A1 A5 Name Clin Term Term Comments Last Filed Vital Signs Vital Sign Reading [...] 10/18/2024 1:21 PM CDT Plan of Treatment Health Maintenance Due Date Last Done Comments Colon Cancer Screening-Colonoscopy 1950 Depression Screening 1950 Fall Risk Assessment 1950 Hepatitis C Screening 1950 Hepatitis B Screening 1970 Well Visit 65+ 2017 Breast Cancer Screening-Mammogram 05/17/2020 05/17/2019, 05/14/2018, 05/12/2017, Additional history exists Osteoporosis Screening-Bone Density Scan 09/23/2024 09/23/2022, 09/23/2022, 01/24/2018, Additional history exists Influenza Vaccine (Season Ended) 2025 04/27/2022, 04/09/2021, 05/17/2019, Additional history exists DTaP/Tdap/Td Vaccine (3 - Td or Tdap) 12/02/2032 12/02/2022, 02/20/2012, 07/10/1998 Pneumococcal vaccine 65+ Completed 11/26/2018, 01/2018 Zoster Vaccine Completed 02/04/2022, 08/2021, 08/29/2013, Additional history exists Procedures Procedure Name Priority Date/Time Associated Diagnosis [...] Bone mineral density was performed on a [employer] Orange Discovery Densitometer. Machine Cross-calibration and Precision studies [...] performed by Veronique Birmingham M.D. Rosalind Pina NP IMG DXA PROCEDURES Karuna l Result from Last 3 Months or Most Recently Relevant to Health Maintenance [facility] MEDIC[facility] ADVANTAGE [facility] MEDICARE ADVANTAGE Care Teams Mix Mill Tender Relationship Specialty Start Date End Date No, Physician PCP - General 10/18/22 Joseph Pina MD [address] [place] [address] 10/18/22
--- OUTSIDE RECORDS SUMMARY | 2024-11-30 07:45 | XMS_ITS | Encounter Summary ---
Author Organization [facility] Address [address] [place] [address] Care Team Providers Care Electrician Refinery Name Role Phone Juan José Curtis MD Unavailable [phone] Rocky Perkins MD Unavailable Veronique Birmingham MD Unavailable Aneta Jansen DO Unavailable Aneta Jansen DO Primary Care Provider [phone] Sophia Rosales Unavailable [phone] Sophia Rosales Unavailable [phone] Reason for Visit * Reason Onset Date Comments Infusion 05/19/2022 Encounter Details Date Type Department Care Team (Late st Contact Info) Description 05/19/2022 Telephone Infusion at [address] [address] Genesis Lopez, BILLING ANALYST-GARAGE CONSTRUCTION EQUIPMENT MECHANIC [address] [place] [address] Infusion Social History Tobacco Use Types Packs/Day Years Used Date Smoking Tobacco: Never Smokeless Tobacco: Never Alcohol Use Standard Drinks/Week Comments No 0 (1 standard drink = 0.6 oz pur e alcohol) PHQ-2 Answer Date Recorded PHQ2 TOTAL SCORE 0 11/15/2021 Comments No Sex and Gender Information Value Date Recorded Sex Assigned at Female 08/23/2020 2:41 PM MERCURY CELL CLEANER Legal Sex Female 6:48 AM MERCURY CELL CLEANER Gender Identity Female 08/23/2020 2:41 PM MERCURY CELL CLEANER Sexual Orientation Not on file documented as of this encounter Miscellaneous Notes * Telephone Encounter - Jen Nunez - 05/19/2022 4:32 PM CST Who is calling? Self What is the reason for call? Patient was referred for infusion and then started feeling better, buthas taken a turn for the worst. Expected Response from the Clinic? Please call her at the above noted phone number. URY CELL CLEANER documented in this encounter Plan of Treatment Upcoming Encounters Date Type Department Care Team (Late st Contact Info) Description 03/13/2025 10:20 AM CDT Office Visit [facility] Medical [facility] - Internal Medicine [address] [place] [address] Aneta Jansen DO [address] [place] [address] documented as of this encounter Visit Diagnoses Not on filedocumented in this encounter Care Teams Electrician Refinery Relationship Specialty Start Date End Date Aneta Jansen DO [address] [place] [address] PCP - [facility] 08/10/21 Aneta Jansen DO [address] [place] [address] PCP - General Internal Medicine 11/18/21 Juan José Curtis MD [address] [place] [address] 02/19/10 05/14/24 Rocky Perkins MD [address] [place] [address] Obstetrics and Gynecology 06/07/16 05/14/24 Veronique Birmingham MD [address] [place] [address] Internal Medicine 11/20/17 05/14/24 Sophia Rosales Care Coordination Specialist Care Management 01/24/24 01/24/24 Sophia Rosales Care Coordination Specialist Care Management 09/02/24 09/02/24 documented as of this encounter
[2024-11-30 09:12] LABS: Add Urine Microscopic? YES; Appearance Urine Clear (Clear); Bacteria Urine None Seen /hpf; Bilirubin Urine Negative (Negative); Blood Urine Negative (Negative); Color Urine Yellow (Yellow); Glucose Urine UA Negative (Negative); Ketones Urine 1+ mg/dL (Negative); Leukocyte Esterase Ur 2+ LEU/UL (Negative); Nitrate Urine Negative (Negative); Protein Urine Negative (Negative); RBC Urine 0-2 /hpf (0-2); Specific Grav Ur 1.023 (1.001-1.035); Squamous Epithelial Cell Urine None Seen /hpf (Few); Urobilinogen Urine 0.2 mg/dL (<2.0)
[2024-11-30 09:26] LABS: Troponin I < 0.012 ng/mL (0.000-0.034)
[2024-11-30] MEDS: LACTATED RINGERS 1,000 ML 999 ML IV CONT (09:38)
== END 2024-11-30 11:52 | disposition home or self-care (01) ==
PROVIDERS: Student in an Organized Health Care Education/Training Program; Emergency Provider Emergency Medicine
DX: I95.1 Orthostatic hypotension (principal); R19.7 Diarrhea, unspecified; S09.93XA Unspecified injury of face, initial encounter; W18.11XA Fall from or off toilet without subsequent striking against object, initial encounter; F41.8 Other specified anxiety disorders; M81.0 Age-related osteoporosis without current pathological fracture; Z11.59 Encounter for screening for other viral diseases
CPT/HCPCS: 36415; 70450; 70486; 71046; 72125; 80053; 81001; 83690; 84484; 85025; 85610; 85730; 87086; 87637; 93005; 96360; 99284; J7120

== ENCOUNTER 2025-03-30 12:00 | Emergency (ER) | payer MEDICARE, SELFPAY ==
--- NOTE | ~2025-03-30 | XR_ITS ---
Examination: XR chest 2V Clinical History: sob, cp, syncope Comparison: 11/30/2024 Technique: PA and Lateral Findings: Cardiomediastinal silhouette normal size and configuration. Lungs clear. Small calcified granuloma overlying central thoracic spine on lateral projection. Left round basilar opacity consistent with nipple shadow. No acute bony abnormality. IMPRESSION: 1. No acute cardiopulmonary findings. Reviewed, dictated and finalized at location R.
[2025-03-30 12:04] VITALS: BP 152/64; PULSE 96; RESP 20; TEMP 36.4; O2SAT 100
--- NOTE | 2025-03-30 12:07 | ECG_ITS ---
Test Date: 2025-03-30 12:13:43 Measurements Intervals Alba Rate: 85 P: 69 AR: 174 QRS: 33 QRSD: 78 T: 42 QT: 366 QTc: 437 Interpretive Statements SINUS RHYTHM WITH OCCASIONAL ECTOPIC PREMATURE COMPLEXES Compared to ECG 11/30/2024 05:52:46 No significant changes Electronically Signed On 03-31-2025 14:11:30 CDT by Jatinder Green M.D.
[2025-03-30 12:10] VITALS: PULSE 90
--- NOTE | 2025-03-30 12:17 | ED_ITS ---
HPI - Syncope General Chief Complaint: Syncope Stated Complaint: near syncope Time Seen by Provider: 03/30/25 12:16 Source: patient Mode of arrival: ambulatory Limitations: no limitations History of Present Illness HPI narrative: 74 years old white female came to the ED by private car complaining of sudden onset of lightheadedness, feeling passing out broke out in cold sweats sting numbness of upper extremity bilaterally lasted 5-10 minutes. The symptom started while patient sitting at the end of the nondenominational today. Patient report having similar symptoms at least twice in the past last 1 was 6 months ago with diagnosis of syncope. The patient and her report too much stress lately patient have trouble sleeping. Patient denies any fever, chills, nausea, vomiting, chest pain, shortness of breath, headache or focal neuro deficit Related Data Home Medications ?Medication ?Instructions ?Recorded ?Confirmed ?Last Taken ?Type cholecalciferol (vitamin D3) 25 25 mcg PO DAILY 03/30/25 01/15/23 History mcg (1,000 unit) tablet (Vitamin D3) escitalopram oxalate 5 mg tablet 5 mg PO BID 01/16/23 03/30/25 01/15/23 History vitamin K2 90 mcg capsule 90 mcg PO DAILY 01/16/2301/15/23 History Allergies Allergy/AdvReac Type Severity Reaction Status Date / Time cefadroxil Allergy Hives Verified 03/30/25 12:13 levofloxacin Allergy Hives Verified 03/30/25 12:13 tetracycline Allergy Hives Verified 03/30/25 12:13 Review of Systems 2 Review of Systems: All systems reviewed & are unremarkable except as noted in HPI and below PMFSH Past Medical History Medical History Anxiety Depression Osteoporosis MVP (mitral valve prolapse) Surgical History Surgical History H/O dilation and curettage Social History Social History Smoking status: Never smoker Substance use: never Substance use type: does not use Living arrangements: with family Spiritual care concerns: No Exam 2 Narrative: General appearance: Well-developed, well-nourished Skin: Normal color Head: Normocephalic, nontraumatic Eyes: Clear conjunctiva ENT: Oropharynx normal, ears normal, nose normal Neck: Supple, nontender Chest and respiratory: Airway patent, no respiratory distress, no accessory muscle use Heart: Regular rate/rhythm Abdomen: Soft, nontender, no organomegaly, quiet bowel sounds Vascular: Normal peripheral pulses, normal capillary refill. 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 tested, no gross motor deficit Course Vital Signs Vital signs: Vital Signs Temperature 36.4 C 03/30/25 12:04 Pulse Rate 96 03/30/25 12:04 Respiratory Rate 20 03/30/25 12:04 Blood Pressure 152/64 H 03/30/25 12:04 Pulse Oximetry 100 03/30/25 12:04 Oxygen Delivery Room Air 03/30/25 12:04 Temperature 36.4 C 03/30/25 12:04 Pulse Rate 73 03/30/25 13:26 Respiratory Rate 12 03/30/25 13:26 Blood Pressure 153/71 H 03/30/25 13:26 Pulse Oximetry 99 03/30/25 13:26 Oxygen Delivery Room Air 03/30/25 12:04 MDM - Syncope MDM Narrative Medical decision making narrative: Patient came to the ED by private car with lightheadedness and near-syncope lasts for 5-10 minutes then resolved while sitting in the nondenominational Vital signs are stable Physical examination is unremarkable Differential diagnosis anxiety like symptoms, orthostatic hypotension, electrolyte imbalance, dehydration, less likely cardiac arrhythmia. Patient does not have comorbidities for stroke or coronary artery disease. Blood workup today includes CBC, CMP, troponin showed WBC 13.1, otherwise within normal limit Chest x-ray showed no acute abnormality EKG on arrival showed normal sinus rhythm at 85 beats per minute, occasional ectopic premature complexes, no significant changes compared to last EKG November 30, 2024 Patient negative for orthostasis Patient's symptom resolved prior to arrival to the emergency room, currently patient is asymptomatic Diagnosis lightheadedness, anxiety like symptoms The pt was discharged to home.the pt,s condition upon discharge was fair,education was provided to the pt in reference to the final impression,discharge study results,treatment,prognosis and need for follow up . Differential Diagnosis Differential diagnosis: Likely other (As above) Medical Records Attestation: I reviewed the patient's medical records. Lab Data Attestation: I reviewed the patient's lab results. 03/30/25 12:18 03/30/25 12:18 Labs: Lab Results 03/30/25 03/30/25 Range/Units 12:18 12:20 WBC 13.1 H (4.5-10.0) K/mm3 RBC 5.30 (4.2-5.4) M/mm3 Hgb 15.4 H (12.0-15.0) g/dL Hct 46.8 (37.0-47.0) % MCV 88.3 (80-100) fl MCH 29.1 (26-34) pg MCHC 32.9 (32-36) g/dl RDW 14.1 (11.5-14.5) % Plt Count 272 (150-375) k/mm3 MPV 11.3 H (7.4-10.4) fl Immature Gran % (Auto) 0.3 (0-0.5) % Neut % (Auto) 59.9 (45.5-73.1) % Lymph % (Auto) 28.0 (18.3-44.2) % [place] % (Auto) 9.6 H (2.6-8.5) % Eos % (Auto) 1.5 (0-4.4) % Baso % (Auto) 0.7 (0.2-1.2) % Lymph # (Auto) 3.66 H (0.9-3.2) K/mm3 [place] # (Auto) 1.3 H (0.1-0.6) K/mm3 Eos # (Auto) 0.2 (0-0.3) K/mm3 Baso # (Auto) 0.1 (0.0-0.1) K/mm3 Abs Immat Gran (auto) 0.04 H (0.00-0.031) K/mm3 Absolute Neuts (auto) 7.8 H (1.3-6.7) K/mm3 Absolute Nucleated RBC 0.000 (0.0-0.012) K/mm3 Nucleated RBC % 0.0 (0.0-0.2) % Sodium 139 (137-145) mmol/L Potassium 3.6 (3.4-5.0) mmol/L Chloride 104 (98-107) mmol/L Carbon Dioxide 22 (22-30) mmol/L Anion Gap 13 H (4-12) mmol/L BUN 18 H (7-17) mg/dL Creatinine 0.75 (0.7-1.0) mg/dL Estim Creat Clear Calc Not Reportable Estimated GFR > 60 (59 - ) Glucose 94 (65-110) mg/dL Calcium 9.5 (8.4-10.2) mg/dL Total Bilirubin 0.6 (0.2-1.3) mg/dL AST 34 (14-36) U/L ALT 29 (6-35) U/L Alkaline Phosphatase 115 (38-126) U/L Troponin I < 0.012 Cancelled (0.000-0.034) ng/mL Total Protein 7.7 (6.3-8.2) g/dL Albumin 4.5 (3.5-5.1) g/dL Imaging Data Radiologist's impression: Impressions Chest X-Ray 03/30/25 13:07 IMPRESSION: 1. No acute cardiopulmonary findings. ECG Data EKG #1: Attestation: I personally reviewed and interpreted this ECG as follows: ECG completion date: 03/30/25 Interpretation: EKG on arrival showed normal sinus rhythm with occasional ectopic premature complexes at 85 beats per minute, compared to EKG on November 30, 2024 no significant change Critical Care Time Critical Care Time Critical Care Time: No Discharge Plan Discharge Clinical Impression: Light-headedness, Stress Patient Disposition: Home Condition: Improved Instructions: Stress (ED), Lightheadedness (ED) Additional Instructions: Return if symptoms are worsening , call your family physician for appointment, take Tylenol as as needed for aches and pain, continue home medications. Patient Language: [place] Prescriptions: No Action escitalopram oxalate 5 mg tablet 5 mg PO BID cholecalciferol (vitamin D3) [Vitamin D3] 25 mcg (1,000 unit) Tablet 25 mcg PO DAILY vitamin K2 90 mcg Capsule 90 mcg PO DAILY Follow-up/Referrals: PHYSICIAN NOT ON STAFF,NONSTAFF [Non-Staff]
[2025-03-30 12:28] LABS: Hematocrit 46.8 % (37.0-47.0); Hemoglobin 15.4 g/dL (12.0-15.0); Immature Granulocyte Percent A 0.3 % (0-0.5); Lymphocytes Absolute Auto 3.66 K/mm3 (0.9-3.2); Mean Corpuscular HGB Conc 32.9 g/dl (32-36); Mean Corpuscular Hemoglobin 29.1 pg (26-34); Mean Corpuscular Volume 88.3 fl (80-100); Nucleated Red Blood Cells Absolute Auto 0.000 K/mm3 (0.0-0.012); Nucleated Red Blood Cells Perc 0.0 % (0.0-0.2); Platelet Count Result 272 k/mm3 (150-375); Red Blood Count 5.30 M/mm3 (4.2-5.4); White Blood Count 13.1 K/mm3 (4.5-10.0)
--- OUTSIDE RECORDS SUMMARY | 2025-03-30 12:36 | XMS_ITS | Clinical Summary ---
Author Organization [facility] Address [address] [place] [id number] Care Team Providers Care Conduit Mechanic Name Role Phone Unavailable Primary Care Provider Unavailabl e Allergies Active Allergy Reactions Criticality Noted Date Comments Levofloxacin Vomiting 11/03/2017 Penicillins Hives 11/03/2017 Tetracycline Hives 11/03/2017 Medications escitalopram 5 MG tablet Take 5 mg by mouth daily. Active Social History Tobacco Use Types Packs/Day Years Used Date Smoking Tobacco: Never Assessed Comments No Sex and Gender Information Value Date Recorded Sex Assigned at Not on file Legal Sex Female 3:33 PM CDT Gender Identity Not on file Sexual Orientation Not on file Last Filed Vital Signs Vital Sign Reading Time Taken Comments Blood Pressure 158/83 11/03/2017 4:50 PM CDT Pulse 91 11/03/2017 4:50 PM CDT Temperature 36.8 C (98.2 F) 11/03/2017 3:46 PM CDT Respiratory Rate 18 11/03/2017 4:50 PM CDT Oxygen Saturation 99% 11/03/2017 4:50 PM CDT Inhaled Oxygen Concentration - - Weight 58.1 kg (128 lb 2 oz) 11/03/2017 3:46 PM CDT Height 160 cm (5' 3) 11/03/2017 3:46 PM CDT Body Mass Index 22.7 11/03/2017 3:46 PM CDT Plan of Treatment Health Maintenance Due Date Last Done Comments Colorectal Cancer Screening Colonoscopy (10 Years) 1952 Hepatitis C 1970 DTaP, Tdap and Td Vaccines ( 1 - Tdap) 1971 Mammogram Screening 1992 Pneumococcal Vaccine: 50+ Ye ars (1 of 1 - PCV) 2002 Zoster Vaccines (1 of 2) 2002 Dexa Scan (General) 2017 COVID-19 Vaccine (1 - 2023-2 5 season) 2025 RSV Immunization or 60+ Years (1 - 1-dose 75+ series) 2027 Meningococcal B Vaccine Aged Out No l onger eligible based on patient's age to complete this topic Meningococcal Vaccine Aged Out No maria del rosario zan eligible based on patient's age to complete this topic RSV Immunizations Under 20 Months Aged Out No longer eligible based on patient's age to complete this topic Insurance
--- OUTSIDE RECORDS SUMMARY | 2025-03-30 12:36 | XMS_ITS | Clinical Summary ---
Author Organization [facility] Address [address] [place] [id number] Care Team Providers Care Lead Data Entry Operator Name Role Phone No, Physician Primary Care Provider [phone] Joseph Pina MD Unavailable [phone] Allergies Active Allergy Reactions Criticality Noted Date Comments Azithromycin Diarrhea Low 10/15/2012 Doxycycline Rash Medium 05/26/2008 hives Levofloxacin Unknown 05/26/2008 Naproxen-Esomeprazole Other (See comments) 05/21/2018 Insomnia, and wired Penicillins Hives Medium 11/03/2017 Shellfish Rash Medium 08/03/2009 Hives Teriparatide Unknown 10/15/2012 [place] ill, flu like symptoms while on it. 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 Machine Cross-calibration and Precision studies [...] of Internal Medicine 114(11): 919-923 (1990) 2) Laureano, Lancet 341 : 72-75 (1992) 3) Black, Journal Bone and Mineral Research 7(6): 633-8 (1991) 4) Husam, Journal Bone and Mineral Research 8(10):1227-33 (1992) The history and data sections of the bone mineral density scan were prepared by RT Becky who is accredited by the International Society of Clinical Densitometry. The overall patient assessment and scan interpretation were performed by Veronique Birmingham M.D. Rosalind Pina PRECISION AIRCRAFT STRUCTURE ASSEMBLER IMG DXA PROCEDURES Karuna l Result from Last 3 Months or Most Recently Relevant to Health Maintenance Insurance [facility] [employer] CHOICE [facility] MEDICARE ADVANTAGE [facility] MEDICARE [facility]ANT[facility] Address: [address] [address] Care Teams Lead Data Entry Operator Relationship Specialty Start Date End Date No, Physician PCP - General 10/18/22 Joseph Pina MD [address] [place] [address] 10/18/22
--- OUTSIDE RECORDS SUMMARY | 2025-03-30 12:36 | XMS_ITS | Clinical Summary ---
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
--- OUTSIDE RECORDS SUMMARY | 2025-03-30 12:36 | XMS_ITS | Encounter Summary ---
Author Organization [facility] Address [address] [facility] [place] [address] Care Team Providers Care Cardroom Worker Name Role Phone Juan José Curtis MD Unavailable [phone] Rocky Perkins MD Unavailable Veronique Birmingham MD Unavailable Aneta Jansen DO Unavailable Aneta Jansen DO Primary Care Provider [phone] Sophia Rosales Unavailable [phone] Sophia Rosales Unavailable [phone] Sophia Rosales Unavailable [phone] Reason for Visit * Reason Onset Date Comments Infusion 05/19/2022 Encounter Details Date Type Department Care Team (Late st Contact Info) Description 05/19/2022 Telephone Infusion at [address] [address] Genesis Lopez, GYMNASTICS COACH OR INSTRUCTOR-MOTTLER OPERATOR [address] [place] [address] Infusion Social History Tobacco Use Types Packs/Day Years Used Date Smoking Tobacco: Never Smokeless Tobacco: Never Alcohol Use Standard Drinks/Week Comments No 0 (1 standard drink = 0.6 oz pur e alcohol) PHQ-2 Answer Date Recorded PHQ2 TOTAL SCORE 0 11/15/2021 Comments No Sex and Gender Information Value Date Recorded Sex Assigned at Female 08/23/2020 2:41 PM AIR BRUSH ARTIST Legal Sex Female 6:48 AM AIR BRUSH ARTIST Gender Identity Female 08/23/2020 2:41 PM AIR BRUSH ARTIST Sexual Orientation Not on file documented as [...] her at the above noted phone number. BRUSH ARTIST documented in this encounter Plan of Treatment Upcoming Encounters Date Type Department Care Team (Late st Contact Info) Description 05/29/2025 2:40 PM AIR BRUSH ARTIST Office Visit [facility] - Internal Medicine [address] [place] [address] Lizz Degroot, GYMNASTICS COACH OR INSTRUCTOR-MOTTLER OPERATOR [address] [place] [address] documented as of this encounter Visit Diagnoses Not on filedocumented in this encounter Care Teams Cardroom Worker Relationship Specialty Start Date End Date Aneta Jansen DO [address] [place] [address] PCP - Attributed-[facility] 08/10/21 Aneta Jansen DO [address] [place] [address] PCP - General Internal Medicine 11/18/21 Juan José Curtis MD [address] [place], [place] [id number] 02/19/10 05/14/24 Rocky Perkins MD [address] [facility] [place] [address] Obstetrics and Gynecology 06/07/16 05/14/24 Veronique Birmingham MD [address] [place] [address] Internal Medicine 11/20/17 05/14/24 Sophia Rosales Care Coordination Specialist Care Management 01/24/24 01/24/24 Sophia Rosales Care Coordination Specialist Care Management 09/02/24 09/02/24 Sophia Rosales Care Coordination Specialist Care Management 03/25/25 03/25/25 documented as of this encounter
[2025-03-30 12:44] LABS: Alanine Aminotransferase 29 U/L (6-35); Albumin Level 4.5 g/dL (3.5-5.1); Alkaline Phosphatase 115 U/L (38-126); Anion Gap 13 mmol/L (4-12); Aspartate Amino Transferase 34 U/L (14-36); Bilirubin,Total 0.6 mg/dL (0.2-1.3); Blood Urea Nitrogen 18 mg/dL (7-17); Calcium 9.5 mg/dL (8.4-10.2); Carbon Dioxide 22 mmol/L (22-30); Chloride 104 mmol/L (98-107); Estimated Glomerular Filt Rate > 60; Glucose 94 mg/dL (65-110); Potassium 3.6 mmol/L (3.4-5.0); Sodium 139 mmol/L (137-145); Total Protein 7.7 g/dL (6.3-8.2)
[2025-03-30 12:46] VITALS: BP 140/65; PULSE 79
[2025-03-30 12:48] VITALS: BP 149/69; PULSE 80
[2025-03-30 12:49] VITALS: BP 153/71; PULSE 77
[2025-03-30 12:55] LABS: Troponin I < 0.012 ng/mL (0.000-0.034)
[2025-03-30 13:26] VITALS: BP 153/71; PULSE 73; RESP 12; O2SAT 99
== END 2025-03-30 14:00 | disposition home or self-care (01) ==
PROVIDERS: Emergency Medicine; Emergency Provider Emergency Medicine
DX: R42 Dizziness and giddiness (principal); F43.9 Reaction to severe stress, unspecified; F41.9 Anxiety disorder, unspecified; F32.A Depression, unspecified; M81.0 Age-related osteoporosis without current pathological fracture
CPT/HCPCS: 36415; 71046; 80053; 84484; 85025; 93005; 99284